=== PATIENT | male | born 1995 | race Caucasian/White ===

== ENCOUNTER 2017-01-15 15:18 | Emergency (ER) | payer OTHER ==
[2017-01-15 15:28] VITALS: BP 138/80; PULSE 85; RESP 16; TEMP 98.2; O2SAT 95
--- NOTE | 2017-01-15 16:13 | EDPHY ---
H & P Stated Complaint: R head lac HPI/ROS: HPI CHIEF COMPLAINT: Right eyebrow laceration HISTORY OF PRESENT ILLNESS: This patient very pleasant 21-year-old male, no significant medical history, presents emergency room with a right eyebrow laceration 3 cm in horizontal length at the distal aspect of the right eyebrow. Was at the gym working out. He pulled metal bar and it slipped and struck him in the right eyebrow region. No LOC. No headache. No vomiting. No other injuries. Tetanus shot is up-to-date. Past Medical History: No significant medical history Past Surgical History: No significant surgical history Social History: Denies daily use of drugs alcohol tobacco products, [employer] student Family History: noncontributory ROS REVIEW OF SYSTEMS: A comprehensive 10 point review of systems is otherwise negative aside from elements mentioned in the history of present illness. Exam Constitutional triage nursing summary reviewed, vital signs reviewed, awake/ alert. Eyes normal conjunctivae and sclera, EOMI, PERRLA. HENT normal inspection, atraumatic, moist mucus membranes, no epistaxis, neck supple/ no meningismus, no raccoon eyes. Respiratory clear to auscultation bilaterally, normal breath sounds, no respiratory distress, no wheezing. Cardiovascular rate normal, regular rhythm, no murmur, no edema, distal pulses normal. Gastrointestinal soft, non-tender, no rebound, no guarding, normal bowel sounds, no distension, no pulsatile mass. Genitourinary no CVA tenderness. Musculoskeletal no midline vertebral tenderness, full range of motion, no calf swelling, no tenderness of extremities, no meningismus, good pulses, neurovascularly intact. Skin face: There is a horizontal right distal 3 cm eyebrow laceration, pink, warm, & dry, no rash Neurologic awake, alert and oriented x 3, AAOx3, moves all 4 extremities equally, motor intact, sensory intact, CN II-XII intact, normal cerebellar, normal vision, normal speech. Psychiatric normal mood/affect. Heme/Lymph/Immune no lymphadenopathy. Differential Diagnosis: Includes but is not limited to in a particular order, the soft tissue injury, eyebrow laceration Medical Decision Making: Plan for this patient under sterile conditions will clean out his laceration repair. Tetanus shot is already up-to-date. No indication for imaging. Re-evaluation: Laceration Repair Procedure: Verbal Consent was obtained, Under sterile conditions, The patient had lidocaine with epinephrine used approximately 4ccs to local anesthetize the 3cm horizontal Laceration. The wound was copiously irrigated with sterile fluid, the wound was explored for foreign bodies there were none visualized, the wound was explored with a sterile glove to the base. There are no deep structures involved, including no arterial injury. THREE interrupted 6.O Prolene Sutures were placed in this patient's laceration. He had good close approximation of the wound edges. He Tolerated this well. Patient understands have sutures removed in 7 days. Watch for signs of infection. Keep it clean dry and protected. Source: Patient - Personal History Current Tetanus/Diphtheria Vaccine: Yes Current Tetanus Diphtheria and Acellular Pertussis (TDAP): Yes - Medical/Surgical History Hx Asthma: No Hx Chronic Respiratory Disease: No Hx Diabetes: No Hx Cardiac Disease: No Hx Renal Disease: No Hx Cirrhosis: No Hx Alcoholism: No Hx HIV/AIDS: No Hx Splenectomy or Spleen Trauma: No - Social History Smoking Status: Never smoked Constitutional: Initial Vital Signs Temperature (C) 36.8 C 01/15/17 15:25 Heart Rate 85 01/15/17 15:25 Respiratory Rate 16 01/15/17 15:25 Blood Pressure 138/80 H 01/15/17 15:25 O2 Sat (%) 95 01/15/17 15:25 Allergies/Adverse Reactions: Penicillins Allergy (Verified 01/15/17 15:28) Departure - Departure Disposition: Home, Routine, Self-Care Clinical Impression: Laceration Facial laceration Qualifiers: Encounter type: initial encounter Qualified Code(s): S01.81XA - Laceration without foreign body of other part of head, initial encounter Condition: Good Instructions: Laceration (ED), Care For Your Stitches (ED) Additional Instructions: 1. Your sutures need to be removed in 7 days. 2. Watch for signs of infection this includes redness, drainage, pus. Referrals: NONE *PRIMARY CARE P,. [Primary Care Provider] - As per Instructions
== END 2017-01-15 16:48 | disposition home or self-care (01) ==
PROC: 0HQ1XZZ Repair Face Skin, External Approach (ICD-10-PCS; principal; 2017-01-15)
DX: S01.111A Laceration without foreign body of right eyelid and periocular area, initial encounter (principal); W22.8XXA Striking against or struck by other objects, initial encounter; Y93.89 Activity, other specified